=== PATIENT | male | born 1940 | race Caucasian/White ===

== ENCOUNTER 2021-01-20 13:45 | Emergency (ER) | payer MEDICARE, SELFPAY ==
[2021-01-20] VITALS (7 sets, daily range): BP systolic 98–128; BP diastolic 53–84; PULSE 89–122; RESP 18–30; TEMP 35.8; O2SAT 93–97; BMI 24.4
--- NOTE | 2021-01-20 15:21 | EKG12_ITS ---
Test Reason : SOB Blood Pressure : / mmHG Vent. Rate : 087 BPM Atrial Rate : 102 BPM P-R Int : 000 ms QRS Dur : 120 ms QT Int : 382 ms P-R-T Axes : 000 -56 058 degrees QTc Int : 459 ms Atrial fibrillation Left anterior fascicular block Left ventricular hypertrophy with QRS widening Nonspecific ST abnormality Abnormal ECG Confirmed by ISRAEL RODRIGUEZ, AVEL ([id number]), state editor DILIA BARBER ([id number]) on 01/24/2021 9:35:22 AM Referred By: JAYY Confirmed By:AVEL WOOD MD
--- NOTE | 2021-01-20 15:22 | EDS_ITS ---
HPI History of Present Illness Chief Complaint: Cough Informant: patient Onset/Context/Timing Onset: - (Uncertain because patient is disoriented not a good informant) Context: - (Unknown) Timing: Continuous Quality: Positive for Dyspnea on exertion and Wheezing; Negative for Orthopnea Current Severity: Mild Maximum Severity: Severe Worsened by: Exertion and Coughing Relieved by: Nothing Associated Symptoms cough, rhinorrhea, post nasal drip, fever, subjective and chills Chest Pain: Positive for None Narrative Narrative: Patient is an elderly male who is disoriented to time who presents with shortness of breath and cough. I am unable to determine whether the patient has a productive or nonproductive cough. He apparently has been vaccinated. He may have received a boost. He denies lung problems. He denies chest pain. He denies leg pain, swelling discoloration. He denies GI symptoms. He denies rash. PE Risk Factors: Negative for Cancer, OCP + Smoking + > 35, Prior DVT or PE, Recent immobilization, Recent surgery and Recent travel Prior similar symptoms: Yes (Pneumonia) Recent Illness/Hospitalization: No PFSH PFSH Medical History (Updated 01/20/21 @ 17:[address] Behzad Kramer MD) Parkinsons Medical History unable to obtain unable to obtain Home Medications carbidopa-levodopa 2 tab PO 4X/DAY 01/20/21 [History Last Taken 01/20/21] dexamethasone [Decadron] 6 mg PO DAILY #7 tab 01/20/21 [Rx Last Taken Unknown] diazepam 2 mg PO TID 01/20/21 [History Last Taken 01/20/21] pantoprazole 40 mg PO DAILY 01/20/21 [History Last Taken 01/20/21] Allergy/AdvReac Type Severity Reaction Status Date / Time No Known Allergies Allergy Verified 01/20/21 13:47 Surgical History unable to obtain unable to obtain Social History (Updated 01/20/21 @ 15:[address] Behzad Kramer MD) household members: none Smoking Status: Unknown if ever smoked substance use type: does not use ROS ROS ED Constitutional Constitutional ED: Reports chills and fever(s); Denies sweats or weight loss Eyes Eyes: Denies blurry vision, change in vision or diplopia ENT ENT ED: Reports rhinorrhea and sore throat; Denies ear pain Cardiovascular Cardiovascular: Denies chest pain, orthopnea, palpitations, paroxysmal nocturnal dyspnea or racing heartbeat Respiratory/Chest Respiratory/Chest: Reports cough, dyspnea and dyspnea on exertion; Denies orthopnea or paroxysmal nocturnal dyspnea Gastrointestinal Gastrointestinal: Denies abdominal pain, constipation, diarrhea, nausea or vomiting Genitourinary Genitourinary ED: Denies dysuria, hematuria or urinary frequency Musculoskeletal Musculoskeletal: Denies arthralgias, back pain, myalgias or neck pain Integumentary Denies abscess, Abrasions or rash Neurologic Neurologic: Reports weakness; Denies headache(s) or paresthesias Endocrine Endocrinology: Denies polydipsia, polyphagia or polyuria Hematologic/Lymphatic Hematologic/Lymphatic: Denies easy bleeding or easy bruising EXAM Physical Exam Const Vital Signs: 01/20/21 13:46 01/20/21 13:47 01/20/21 14:36 Temperature 96.5 F L 96.5 F L Temperature Source Temporal Temporal Pulse Rate 112 H 91 91 Respiratory Rate 19 H 26 H 26 H Respiratory Effort Blood Pressure 117/53 L 128/78 H 128/78 H Blood Pressure Mean 74 94 94 Pulse Ox 97 96 96 Oxygen Delivery Method Room Air Room Air 01/20/21 14:42 01/20/21 16:06 01/20/21 16:11 Temperature Temperature Source Pulse Rate 100 89 Respiratory Rate 18 25 H Respiratory Effort Non-Labored Blood Pressure 98/68 Blood Pressure Mean 78 Pulse Ox 93 Oxygen Delivery Method Room Air Positive well nourished and well developed General Appearance ED: well developed and NAD HEENT Reports TM's clear and dry mucous membranes HEENT Narrative: Posterior pharynx without erythema or exudate. Nares patent. atraumatic Tympanic Membrane ED: Yes TM's clear Mouth ED: Yes dry mucous membranes Mouth: dry mucous membranes Eyes PERRL and EOMs intact bilaterally General Eye ED: Negative for pale conjunctiva or scleral icterus Neck no lymphadenopathy, supple, no meningeal signs and no JVD Resp normal respiratory effort and No clear to auscultation bilaterally Auscultation: rales bilateral lower and wheezes expiratory wheezes, left lower and right lower Cardio regular rate, regular rhythm, S1 normal heart sound, S2 normal heart sound and no murmurs GI non-tender, non-distended and no masses Auscultation: normoactive bowel sounds Palpation: soft Back/Spine no CVA tenderness and normal to inspection Extremity normal to inspection Extremity Narrative: There is no asymmetry, swelling, discoloration, leg vein distention, palpable cords or tenderness along the distribution of the deep venous system. General Extremety ED: Negative for edema or tenderness General Extremity: Negative for edema Neuro No oriented x3 and CN's II-XII intact bilaterally Isabel Coma Scale: document GCS findings Spontaneous Obeys Commands Confused 14 Sensorium / Orientation: alert, oriented to person, oriented to place, orientation impaired and confused; Negative for oriented to time Motor Exam: strength 5/5 throughout Psych Negative for mental status grossly normal Mood & Affect: Negative for depressed Thought Process: No normal thought process Skin no wounds Lesions: no lesions Rashes: no rashes MDM MDM MDM Narrative Medical decision making narrative: Chief complaint cough shortness of breath and abnormal auscultatory findings need to rule out pneumonia versus viral infection versus nonpulmonary causes. Obtain EKG, chest x-ray, appropriate blood work. He was treated with DuoNeb, albuterol and Solu-Medrol. Because of limited resources and limited bed availability hospitalist asked that I contact manager social responsibility/case management determine if this is a new finding i.e. change in mental status. If new and family not able to care for him he will be admitted. I was informed by the hospitalist that this was discussed by the admitting team. Per family members everyone has Covid. His confusion is not new. Therefore will discharge to home. Family feels comfortable caring for him. Lab Data Attestation: I reviewed the patient's lab results. Lab results narrative: Laboratory values are all normal. Labs: Laboratory Results - last 24 hr 01/20/21 01/20/21 01/20/21 15:55 15:55 15:55 WBC 6.4 RBC 5.28 Hgb 15.2 Hct 45.9 MCV 86.9 MCH 28.8 MCHC 33.1 RDW Std Deviation 44.4 H RDW Coeff of [place] 13.9 Plt Count 190 MPV 10.9 Immature Gran % (Auto) 0.800 Neut % (Auto) 60.5 Lymph % (Auto) 22.4 Holmes % (Auto) 11.6 H Eos % (Auto) 4.2 Baso % (Auto) 0.5 Absolute Neuts (auto) 3.9 Absolute Lymphs (auto) 1.44 Nucleated RBC % 0 Sodium 137 Potassium 3.8 Chloride 100 Carbon Dioxide 30.0 Anion Gap 7 BUN 27 H Creatinine 1.07 Estim Creat Clear Calc 60.44 Est GFR (MDRD) Af Amer 86 Est GFR (MDRD) Non-Af 71 BUN/Creatinine Ratio 25.2 H Glucose 94 Lactic Acid 0.9 Calcium 8.6 Total Bilirubin 0.60 AST 33 ALT 9 L Alkaline Phosphatase 74 Total Protein 6.9 Albumin 2.5 L Globulin 4.4 H Albumin/Globulin Ratio 0.6 L Covid test is positive. Since patient has encephalopathy due to Covid with pneumonia will call hospitalist for admission. Radiography Chest X-Ray - ED: 1 View (Single view portable chest x-ray reveals haziness left peripheral lung field and possibly mid peripheral right lung field. Cardiac silhouette and size normal. Perihilum is normal. Osseous structures unremarkable.) Diagnostic Testing: Clinical Impression(s) from Imaging Studies Chest X-Ray 01/20/21 16:15 IMPRESSION: 1. Multilobar pulmonary infiltrates suggesting pneumonia, including viral causes. Electronically Signed: Adebayo Adan MD ([place]) at 16:36 EST , Service support , Discharge Plan Triage Chief Complaint: Cough ED Provider: Behzad Kramer Dx/Rx/DC Orders Clinical Impression: Pneumonia due to 2019-nCoV, Sepsis Prescriptions: New dexamethasone [Decadron] 6 mg tablet 6 mg PO DAILY Qty: 7 RF: 0 No Action diazepam 2 mg tablet 2 mg PO TID RF: 0 pantoprazole 40 mg tablet,delayed release (DR/EC) 40 mg PO DAILY RF: 0 carbidopa-levodopa 25-100 mg tablet 2 tab PO 4X/DAY RF: 0 Primary Care Provider: Brady Nowak Referrals: Brady Nowak MD [Primary Care Provider] - Activity Restrictions/Additional Instructions: 1. You need to purchase a pulse ox. If pulse ox goes below 90% have Mr. Kyle brought back to the emergency department Disposition Disposition: Home, Self Care
[2021-01-20] MEDS: MethylPREDNISolone 125 MG/2 ML Vial IV (15:50)
[2021-01-20 16:03] LABS: Absolute Lymphocyte Count 1.44 X10^3/uL (0.83-4.51); Absolute Neutrophil Count 3.9 X10^3/uL (2.0-7.7); Basophil# 0.03 X10^3/uL; Basophil% 0.5 % (0-1); Eosinophil# 0.27 X10^3/uL; Eosinophils% 4.2 % (0-5); Hematocrit 45.9 % (40-54); Hemoglobin 15.2 g/dL (13.0-16.5); Lymphocyte # 1.44 X10^3/ul (0.83-4.51); Lymphocyte % 22.4 % (19-41); Mean Corp Hgb Conc 33.1 g/dL (32-36); Mean Corpuscular Hgb 28.8 pg (27.0-32.0); Mean Corpuscular Volume 86.9 fL (80-94); Mean Platelet Vol. 10.9 fl (6.2-12.0); Monocyte# 0.75 X10^3/uL; Monocyte% 11.6 % (0-10); NRBC Flagged by Analyzer 0 % (0-5); Neutrophil % 60.5 % (47-70); Platelet Count 190 K/mm3 (150-450); RBC Distribution Width CV 13.9 % (11.6-14.6); RBC Distribution Width SD 44.4 fl (35.1-43.9); Red Blood Count 5.28 M/mm3 (4.6-6.2); White Blood Count 6.4 K/mm3 (4.4-11.0)
[2021-01-20] MEDS: Ipratropium/Albuterol Sulfate 3 ML AMPUL.NEB INHALATION (16:10)
[2021-01-20] MEDS: Albuterol 2.5 MG/3 ML VIAL.NEB. INHALATION ×2 (16:10→16:21)
--- NOTE | 2021-01-20 16:15 | RAD_ITS ---
STUDY: X-RAY CHEST REASON FOR EXAM: Male, 81 years old. Cough, shortness of breath, rales and wheezing TECHNIQUE: AP COMPARISON: None. FINDINGS: EKG leads project over the chest. There are patchy groundglass and reticular opacities of the left more than right lung. There is no demonstrated pleural abnormality. There is mild cardiac enlargement. Normal mediastinum and young. Normal visualized pulmonary arteries. Normal visualized aortic arch and descending thoracic aorta. No acute bony process. There is no demonstrated abnormality of the visualized soft tissue structures of the upper abdomen. RAD/Chest 1 View (Portable) IMPRESSION: 1. Multilobar pulmonary infiltrates suggesting pneumonia, including viral causes. Electronically Signed: Adebayo Adan MD ([place]) at 16:36 EST , Service support ,
[2021-01-20 16:21] LABS: ALB/GLOB Ratio 0.6 RATIO (0.9-2.4); AST(SGOT) 33 U/L (15-37); Alanine Aminotransfer ALT/SGPT 9 U/L (16-61); Albumin, Serum 2.5 g/dL (3.2-5.0); Alkaline Phosphatase 74 U/L (45-117); Anion Gap 7 (5-15); BUN 27 mg/dL (7-18); BUN/Creat Ratio 25.2 RATIO (10-20); Calcium,Total 8.6 mg/dL (8.5-10.1); Chloride 100 mmol/L (98-107); Creatinine, Serum 1.07 mg/dL (0.70-1.30); EST Glomerular Filtration Rate 71 mL/min (>60); Est Glom Filt Rate - Afr Amer 86 mL/min (>60); Estimated Creatinine Clearance 60.44 ml/min; Globulin 4.4 g/dL (2.2-4.2); Glucose 94 mg/dL (74-106); Potassium 3.8 mmol/L (3.5-5.1); Protein, Total 6.9 g/dL (6.4-8.2); Sodium Level 137 mmol/L (136-145)
[2021-01-20 16:25] LABS: Lactic Acid 0.9 mmol/L (0.4-1.9)
--- NOTE | 2021-01-20 17:40 | CM.ED ---
SOCIAL WORK Referral Source: Dr. Kramer Reason for Consult: Discharge Planning Patient positive for COVID-19. Call to patient's caregiver to discuss patient's baseline and ability for patient to return home safely. Caregiver reports patient able to return home. Caregiver states COVID-19 symptoms started 3 days ago. Patient resides in a 2 story home with 1st floor set up. Caregiver states patient with history of Parkinson's. Caregiver states does not have pulse ox at home and concerns on his ability to get to the store as he is also COVID-19 positive. Pulse ox given to patient. 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
== END 2021-01-20 18:03 | disposition home or self-care (01) ==
PROVIDERS: Emergency Provider Emergency Medicine; PCP Family Medicine
DX: A41.89 Other specified sepsis (principal); J12.82 Pneumonia due to coronavirus disease 2019; U07.1 COVID-19; G20 Parkinson's disease; I48.91 Unspecified atrial fibrillation; Z79.52 Long term (current) use of systemic steroids
CPT/HCPCS: 71045; 80053; 83605; 85025; 87426; 93005; 94640; 96374; 99251; 99284; J7040; A4216; G0463